=== PATIENT | male | born 1965 | race Caucasian/White ===

== ENCOUNTER 2017-01-01 16:29 | Inpatient (IN) ==
[2017-01-01] MEDS ORDERED: *HR* Heparin 5,000 UNIT/ML VIAL IVP ONE (17:00)
[2017-01-01] MEDS ORDERED: Aspirin 81 MG TAB.CHEW PO ONE (17:00)
[2017-01-01] MEDS ORDERED: *HR* Ticagrelor 90 MG TABLET ONE (17:00)
[2017-01-01] MEDS ORDERED: *HR* Heparin 5,000 UNIT/ML VIAL ONE (17:00)
[2017-01-01] MEDS ORDERED: *HR* Ticagrelor 90 MG TABLET PO ONE (17:00)
[2017-01-01] MEDS ORDERED: 0.9 % Sodium Chloride 1,000 ML ONE ×3 (17:01→17:47)
[2017-01-01] MEDS ORDERED: Aspirin 81 MG TAB.CHEW ONE (17:01)
[2017-01-01 17:15] LABS: Basophils # 0.1 K/mcL (0.0-0.2); Basophils % 0.6 %; Eosinophils # 0.1 K/mcL (0.0-0.6); Eosinophils % 0.7 %; Hematocrit 54.6 % (37.5-50.1); Immature Granulocytes % 0.4 % (0-4); Lymphocytes % 13.3 %; Mean Corpuscular HGB Conc 34.8 g/dL (31.6-35.5); Mean Corpuscular Hemoglobin 31.6 pg (28.0-33.3); Mean Corpuscular Volume 90.7 fL (83.0-100.0); Mean Platelet Volume 8.8 fL (9.4-12.4); Monocytes % 6.3 %; Neutrophils # 11.9 K/mcL (1.6-8.9); Platelet Count 351 K/mcL (140-400); Red Blood Count 6.02 M/mcL (4.19-5.50); Red Cell Distribution Width 13.6 % (11.5-14.5); Segmented Neutrophils % 78.7 %
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
[2017-01-01 17:20] LABS: INR 1.1; Prothrombin Time 11.4 Seconds (9.4-12.1)
[2017-01-01 17:22] LABS: Activated Partial Thrombo Time 37.1 Seconds (26.0-36.0)
[2017-01-01] MEDS ORDERED: *HR* Morphine 2 MG/ML SYRINGE IVP PRN (17:24)
[2017-01-01] MEDS ORDERED: Ondansetron 4 MG/2 ML VIAL IVP PRN (17:24)
[2017-01-01 17:27] LABS: BUN/Creatinine Ratio 8 (6-26); Blood Urea Nitrogen 7 mg/dL (8-26); Calcium 9.6 mg/dL (8.6-10.8); Carbon Dioxide 23 mEq/L (19-29); Chloride 98 mEq/L (98-109); Glucose 122 mg/dL (70-99); Magnesium 1.6 mg/dL (1.6-2.6); Osmolality,Calculated 279 (280-300); Sodium 135 mEq/L (136-145); eGFR For African Americans > 60 (> 60); eGFR For Non-African Americans > 60 (> 60)
[2017-01-01] MEDS ORDERED: Nitroglycerin 1,000 MCG/10 ML VIAL IV ONE (17:27)
[2017-01-01] MEDS ORDERED: *HR* Heparin 10,000 UNIT/10 ML VIAL ONE (17:27)
[2017-01-01] MEDS ORDERED: *HR* FentaNYL (PF) 250 MCG/5 ML VIAL ONE (17:27)
[2017-01-01] MEDS ORDERED: Verapamil 5 MG/2 ML VIAL ONE (17:27)
[2017-01-01] MEDS ORDERED: Heparin 1,000 UNITS/500 mL NS 500 ML ONE (17:27)
[2017-01-01] MEDS ORDERED: *HR* Midazolam HCl 5 MG/5 ML VIAL IVP ONE (17:27)
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
[2017-01-01] MEDS ORDERED: Ondansetron 4 MG/2 ML VIAL IV ONE (17:38)
[2017-01-01] MEDS ORDERED: Ondansetron 4 MG/2 ML VIAL ONE (17:42)
--- NOTE | 2017-01-01 17:49 | Pre-Sedation Evaluation ---
Pre-sedation evaluation - Pre-sedation checklist Date of procedure: 01/01/17 Procedure: [facility] Recent Vitals: Last Vital Signs Temp 98.5 F 01/01/17 17:04 Pulse 68 01/01/17 17:12 Resp 14 01/01/17 17:12 BP 162/94 01/01/17 17:12 Pulse Ox 98 01/01/17 17:12 H&P (including ROS) documented in medical record: Yes Previous reaction to sedatives/anesthetics: No Dietary Status: unknown Airway Assessment: Patient can open mouth completely, TMJ function normal ASA Classification *see protocol: CLASS II-Mild systemic disease, E-EMERGENCY- Add to any of the above to indicate emergent Plan of Care: Pt appropriate candidate for procedure/moderate/conscious sedation , Risks/benefits of procedure/sedation discussed w/ patient/family
[2017-01-01] MEDS ORDERED: GI Cocktail 40 ML EACH PO ONE (18:51)
[2017-01-01] MEDS ORDERED: *HR* HYDROcodone/Acet 5/325 mg TABLET PO PRN (19:12)
[2017-01-01] MEDS ORDERED: Acetaminophen 325 MG TABLET PO PRN (19:12)
[2017-01-01] MEDS ORDERED: Nitroglycerin 0.4 MG TAB.SUBL SL PRN (19:12)
[2017-01-01] MEDS ORDERED: *HR* OxyCODONE/APAP 5/325 TABLET PO PRN (19:12)
[2017-01-02 04:32] LABS: Basophils # 0.1 K/mcL (0.0-0.2); Basophils % 0.5 %; Eosinophils # 0.1 K/mcL (0.0-0.6); Eosinophils % 0.7 %; Hematocrit 50.2 % (37.5-50.1); Hemoglobin 17.5 g/dL (12.9-16.9); Immature Granulocytes % 0.5 % (0-4); Lymphocytes # 2.2 K/mcL (0.6-4.6); Lymphocytes % 13.1 %; Mean Corpuscular HGB Conc 34.9 g/dL (31.6-35.5); Mean Corpuscular Hemoglobin 31.4 pg (28.0-33.3); Mean Platelet Volume 9.1 fL (9.4-12.4); Monocytes # 1.5 K/mcL (0.0-1.3); Monocytes % 8.8 %; Neutrophils # 12.9 K/mcL (1.6-8.9); Platelet Count 300 K/mcL (140-400); Red Blood Count 5.58 M/mcL (4.19-5.50); Red Cell Distribution Width 13.5 % (11.5-14.5); Segmented Neutrophils % 76.4 %
[2017-01-02 04:40] LABS: Hemoglobin A1C 5.4 %
[2017-01-02 04:45] LABS: BUN/Creatinine Ratio 9 (6-26); Blood Urea Nitrogen 7 mg/dL (8-26); Calcium 8.7 mg/dL (8.6-10.8); Carbon Dioxide 25 mEq/L (19-29); Chloride 105 mEq/L (98-109); Glucose 121 mg/dL (70-99); Osmolality,Calculated 285 (280-300); Potassium 3.9 mEq/L (3.5-4.5); Sodium 138 mEq/L (136-145); eGFR For African Americans > 60 (> 60); eGFR For Non-African Americans > 60 (> 60)
[2017-01-02] MEDS ORDERED: *HR* Ticagrelor 90 MG TABLET PO SCH (06:00)
[2017-01-02] MEDS ORDERED: 0.9 % Sodium Chloride 2,000 ML ONE (06:35)
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
--- NOTE | 2017-01-02 08:19 | Cardiology Progress Note ---
Date of Encounter: 01/02/17 Time of Encounter: 08:16 Assessment and Plan (1) Alcohol abuse, daily use Current Visit: Yes Status: Acute No current signs of withdrawal. We will order as needed ativan to control any withdrawal symptoms. (2) Nicotine dependence Current Visit: Yes Status: Acute counseling provided The assessment and plan as outlined above was discussed with the patient and/or family members who expressed understanding and agreement. All questions were answered. Qualifiers: Nicotine product type: cigarettes Substance use status: uncomplicated Qualified Code(s): F17.210 - Nicotine dependence, cigarettes, uncomplicated (3) HTN (hypertension) Current Visit: Yes Status: Acute continue home meds, titrate during hospitalization. He will remain on lisinopril. Metoprolol has been held due to sinus bradycardia. Qualifiers: Hypertension type: essential hypertension Qualified Code(s): I10 - Essential (primary) hypertension (4) STEMI (ST elevation myocardial infarction) Current Visit: Yes Status: Acute Left heart catheter due to STEMI. EF of 55%. Received [id number] proximal RCA drug-eluting stent from the right radial approach. His symptoms have since resolved. He is currently on Brilinta and aspirin. His metoprolol was held due to his sinus bradycardia. He will likely be able to move to a step down unit from the ICU today. Qualifiers: Involved coronary artery: other inferior wall coronary artery Qualified Code(s): I21.19 - ST elevation (STEMI) myocardial infarction involving other coronary artery of inferior wall (5) History of DVT of lower extremity Current Visit: No Status: Acute Calling PCP to find reason for being on eliquis for past 6 years Will restart eliquis if needed Discussion w patient/family: The assessment and plan as outlined above was discussed with the patient and/or family members who expressed understanding and agreement. All questions were answered. Thank you for involving us in the care of your patient. Please call with any questions. Subjective Principal diagnosis: STEMI Interval history: The patient had an uneventful night. He reports he has no chest discomfort whatsoever. All of the symptoms that he presented to the ER with have resolved. He denies any significant pain at the wrist catheter insertion site. He has been able to eat and drink without difficulty. His heart rate has remained between the mid 50s and 70 throughout the night. He denies any symptoms associated with this. He does report that he is a heavy drinker but has been slowly coming back. He drinks between a 6 and a 12 pack every evening. His last alcohol intake was approximately 36 hours ago. He denies any confusion, agitation, tremors. He has not gone into delirium tremens in the past. Objective Vital Signs, Last 4 Hours Temp Pulse Resp BP Pulse Ox 01/02/17 08:00 58 18 157/99 94 01/02/17 07:45 98.3 F 58 01/02/17 07:00 60 14 137/81 91 01/02/17 06:00 56 18 129/77 95 01/02/17 05:00 68 16 152/96 98 01/02/17 04:29 61 General: Conversant, No Apparent Distress HEENT: Atraumatic, Mucus Membranes Moist Neck: No JVD, Normal carotid pulses Cardiac: Reg Rate and Rhythm, Normal S1 and S2, No Murmur Lungs: Normal Breath Sounds, No Wheeze, Rales, Rhonchi Neuro: Alert and responsive, No focal deficits noted Abdomen: Soft Skin: No rashes noted on visualized skin Extremities: No Cyanosis, No Edema, Normal Pulses, Other (Right wrist catheter insertion site is healing well without significant hematoma. Pulses are palpable. Hand is warm and pink with cap refill less than 3 seconds.) Results 01/02/17 04:21 01/02/17 04:21 Lab Results 01/02/17 01/02/17 04:21 04:21 WBC 16.9 H Hgb 17.5 H D Hct 50.2 H Plt Count 300 Sodium 138 Potassium 3.9 Chloride 105 Carbon Dioxide 25 BUN 7 L Creatinine 0.76 Glucose 121 H Calcium 8.7 Consult Discharge Plan - Plan Referrals: NO,PCP [Primary Care Provider] -
[2017-01-02] MEDS ORDERED: Metoprolol XL (24 HR) Succ 25 MG TAB.ER.24H PO SCH (09:00)
[2017-01-02] MEDS ORDERED: Aspirin 81 MG TAB.CHEW PO SCH (09:00)
[2017-01-02] MEDS ORDERED: Lisinopril 20 MG TABLET PO SCH (09:00)
--- NOTE | 2017-01-02 09:08 | Invasive Diagnostic Lab Proc ---
Name: Jovany Scott Date of Study: 01/01/2017 Date: 1965 Ht: 66.1in Medical Record#: [id number] Age: 51 Wt: 171.96lb Gender: Male BSA: 1.88 Order #: [id number] BMI: 27.64 Physicians Procedure Physician: Juan Carlos Cárdenas MD, [facility] Referring MD: None Referring MD: Staff Name Position Time In Liam Casas RN Monitor 05:50 PM Anita Vivas RT (R) Scrub 05:50 PM Royce Scott RN Assembly Riveter 05:50 PM Indications Indication STEMI Procedures Performed Procedure L HRT ARTERY/VENTRICLE ANGIO PRQ CARD REVASC MT 1 VSL Pre-Procedure Checklist Informed consent is complete signed and on chart. H\\T\\P is on chart. ID band is on and ID verified with patient. Pt not NPO for procedure and MD aware. The procedure was described for the patient and questions were answered. Blood Pressure: 162/94 ECG is on chart. Rhythm: NSR Plan of Care Patient will tolerate the procedure without complications. Adequate level of comfort will be maintained. Hemodynamics will remain stable Patient will recover from procedure without complications. Respiratory function will be maintained. Cardiac rhythm will remain stable. Patient temperature will be maintained. Patient and/or family have verbalized understanding of the procedure. Patient Education Chief Complaint/Reason for Test: Cardiac Cath Developmental Category: Adult (18-64 years) Developmentally Appropriate for Age: Yes Learning Barriers: None Education Needs: Procedure Education Method: Verbal Information Taught: Cardiac Cath Educational Evaluation: Able to repeat information Intravenous Access Time IV Size Location DC'd Fluid/Drip Rate Units RN 18g 1 1/" Patent On Arrival Lt Antecubital 0.9NaCl 25 ml/hr Liam Casas RN 18g 1 1/4" Patent On Arrival Rt Antecubital Allergies No Known Allergies Vital Signs Time BP (mmHg) HR (bpm) O2 Sat. RR (bpm) LOC 05:22 PM 162 / 94 68 98 % 14 5 = Fully awake and oriented or at pre-proc level 05:53 PM / % 5 = Fully awake and oriented or at pre-proc level 05:53 PM / % 5 = Fully awake and oriented or at pre-proc level 05:52 PM 160 / 97 62 100 % 21 05:55 PM 162 / 103 60 100 % 20 06:00 PM 129 / 82 60 98 % 30 06:06 PM 171 / 101 55 98 % 32 06:11 PM 171 / 110 56 98 % 25 06:16 PM 159 / 99 62 99 % 22 06:21 PM 153 / 88 51 99 % 24 Procedural Medications Time Medication Dose Units Method Given By 05:51 PM Oxygen 2 L/min nasal cannula Royce Scott RN 05:51 PM Versed 2 mg Intravenous Royce Scott RN 05:51 PM Fentanyl 50 mcg Intravenous Royce Scott RN 05:54 PM Lidocaine 2% 1 ml Subcutaneous Juan Carlos Cárdenas MD, [facility] 05:55 PM Heparin 0 units Nitroglycerin 200 mcg Verapamil 2.5 mg Intraarterial Juan Carlos Cárdenas MD, FAC 06:16 PM Nitroglycerin 200 mcg Intracoronary Juan Carlos Cárdenas MD 06:30 PM Heparin 2000 units Intravenous Royce Scott RN ASA Classification: CLASS II- Mild systemic disease (i.e. well-controlled diabetes, hypertension, asthma, cigarette smoking) Emergent Procedure: ASA score is assumed Giselle Score Preprocedure Postprocedure Activity 2- Moves 4 extremities sustained head lift Activity 2- Moves 4 extremities sustained head lift Circulation 2- SBP +/= 20 points of pre-anesthetic level Circulation 2- SBP +/= 20 points of pre-anesthetic level Consciousness 2- Awake and alert oriented x 3 Consciousness 2- Awake and alert oriented x 3 O2 Saturation 2- Able to maintain O2 satruation of 92% on room air O2 Saturation 2- Able to maintain O2 satruation of 92% on room air Respiratory 2- Able to deep breathe and cough well Respiratory 2- Able to deep breathe and cough well Total Score 10 Total Score 10 Contrast Agent: Isovue Diagnostic Contrast: 84 ml Total Contrast: 84 ml Fluoro Dose: 285 mGy Activated Clotting Time Time Seconds to Clot 06:25 PM 199 Procedure Log Time Note Enter By 05:18 PM CathStat 05:50 PM Case Start 05:50 PM Vitals capture started with the following parameters, Patient=Adult, Interval=5 min, Initial Pjxyepqx=806 mmHg, Deflation Rate=5 mmHg, Cuff placed on Left Arm 05:50 PM Pt arrived to environmental laboratory technician 2 at 17:45 csmith 05:50 PM Liam Casas RN Position: Monitor Time in: 17:50 csmith 05:50 PM Anita Vivas RT (R) Position: Scrub Time in: 17:50 csmith 05:50 PM Royce Scott RN Position: Assembly Riveter [facility]: 17:50 [facility] Patient charges- Angio tray pack, Navilyst 3mm J, Pulse Oximetry and ACIST tubing and transducer csmith 05:50 PM Recorded ECG: HR=59 Condition=Condition 1 05:51 PM Hair removed from procedure site in emergency department using clippers. Right wrist and right groin prepped with Chloraprep by Anita then patient was draped. Skin intact. csmith 05:51 PM Recorded ECG: HR=65 Condition=Condition 1 05:51 PM Physician arrived 17:51 csmith 05:51 PM ASA Class CLASS II- Mild systemic disease (i.e. well-controlled diabetes, hypertension, asthma, cigarette smoking) csmith 05:51 PM Meet and greet completed csmith 05:51 PM Procedure start 17:51 csmith 05:51 PM Time: 17:51 Oxygen on at 2 L/min per nasal cannula by Royce Scott RN [facility] 05:51 PM Time: 17:51 Versed 2 mg Intravenous Given by Royce Scott RN [facility] 05:51 PM Time: 17:51 Fentanyl 50 mcg Intravenous Given by [facility] RN [facility] 05:52 PM HR=62 bpm, RMCJ=326/97 mmhg, AjE6=893.0 %, Resp=21 B/min, Comment=sr 05:53 PM Time: 17:53 Patient comfortable and pain free: Yes csmith 05:53 PM Time: 17:53LOC: 5 = Fully awake and oriented or at pre-proc level csmith 05:54 PM Time out performed according to hospital policy [facility] :54 PM Time: 17:54 1 ml Lidocaine 2% to right radial Subcutaneous Given by Juan Carlos Cárdenas MD, [facility] csmith 05:55 PM Access obtained by percutaneous puncture. 5/6Fr 11cm Terumo [place] sheath placed in right Radial artery. [id number] csmith 05:55 PM Time: 17:55 Patient given 0 units Heparin, 200 mcg Nitroglycerin, and 2.5 mg Verapamil Intraarterial by Juan Carlos [facility]denas MD, [facility] 05[facility] PM HR=60 bpm, JDSS=008/103 mmhg, BuC1=964.0 %, Resp=20 B/min, Comment=sr 05:56 PM Pressure channel 1 zero failed. 05:57 PM Pressure channel 1 zeroed. 05:57 PM 6Fr FR4 Cordis guide catheter was used to cannulate the PCI vessel successfully. reused? No csmith 05:57 PM Inflation device was opened. csmith 05:57 PM 0.035 260cm Navilyst 3mmJ wire [id number] csmith 05:58 PM wire removed csmith 05:58 PM 0.035 150cm VSI Dg-Torque wire [id number] csmith 05:59 PM Recorded Pressure: Ao, HR=46, Condition=Condition 1 (Aorta) Ao 106/60/79 06:00 PM RCA angiography performed in multiple views. csmith 06:00 PM wire removed csmith 06:00 PM .014 PT Graphix 182cm guide wire across target lesion- successful. reused? No csmith 06:00 PM 2.0 mm x 20 mm Emerge Monorail balloon across target lesion- successful. reused? No csmith 06:00 PM HR=60 bpm, AYQZ=902/82 mmhg, SpO2=98.0 %, Resp=30 B/min, Comment=sr 06:01 PM PCI lesion in Proximal RCA. Pre Stenosis: 99 Pre KHAI Flow: 2: Partial Flow/Perfusion (> 1 but < 3) csmith 06:01 PM Balloon inflated @ 14 marc for 10 seconds csmith 06:01 PM Balloon inflated @ 14 marc for 15 seconds csmith 06:04 PM Recorded Pressure: Ao, HR=62, Condition=Condition 1 (Aorta) Ao 137/87/109 06:04 PM Balloon catheter removed intact. csmith 06:05 PM 3.0mm x 32mm Synergy bioabsorbable stent across target lesion- successful Lot #[id number] csmith 06:05 PM Stent deployed @ 16 marc for 18 seconds csmith 06:06 PM HR=55 bpm, VEZZ=119/101 mmhg, SpO2=98.0 %, Resp=32 B/min, Comment=sb 06:07 PM Stent delivery system removed intact. csmith 06:07 PM 3.5mm x 12mm Synergy bioabsorbable stent across target lesion- successful Lot #[id number] [facility] 06:08 PM Time: 17:53 Patient comfortable and pain free: Yes csmith 06:08 PM Time: 17:53LOC: 5 = Fully awake and oriented or at pre-proc level csmith 06:08 PM Stent deployed @ 16 marc for 20 seconds csmith 06:09 PM Balloon inflated @ 12 marc for 16 seconds csmith 06:10 PM Balloon inflated @ 12 marc for 10 seconds csmith 06:10 PM Balloon inflated @ 12 marc for 11 seconds csmith 06:10 PM Coronary Dominance: right csmith 06:11 PM HR=56 bpm, CQPT=547/110 mmhg, SpO2=98.0 %, Resp=25 B/min, Comment=sb 06:11 PM wire and stent delivery system removed csmith 06:11 PM guide catheter removed csmith 06:13 PM 5Fr FL 3.5 catheter inserted over the wire [id number] csmith 06:14 PM LCA angiography performed in multiple views. csmith 06:14 PM Recorded Pressure: Ao, HR=57, Condition=Condition 1 (Aorta) Ao 131/76/100 06:15 PM Lesion found in Proximal LAD. Pre Stenosis: 40 Pre KHAI Flow: 3: Complete and Brisk Flow/Perfusion csmith 06:15 PM Lesion found in Mid Circumflex. Pre Stenosis: 40 Pre KHAI Flow: 3: Complete and Brisk Flow/Perfusion csmith 06:16 PM catheter removed csmith 06:16 PM HR=62 bpm, UTND=430/99 mmhg, SpO2=99.0 %, Resp=22 B/min, Comment=sr 06:16 PM 5Fr Pigtail catheter inserted over the wire [facility] csmith 06:16 PM Catheter selectively placed in left ventricle csmith 06:17 PM Pressure channel 1 zero failed. 06:17 PM Pressure channel 1 zeroed. 06:17 PM Recorded Pressure: LV, HR=55, Condition=Condition 1 (Left Ventricle) LV 170/9/26 06:17 PM Bolus angiogram of left Ventricle complete: 10 ml/sec for a total of 20 mls csmith 06:18 PM Recorded Pressure: LV, Ao, HR=84, Condition=Condition 1 (Left Ventricle) LV 132/2/34, (Aorta) Ao 145/90/116 06:18 PM Catheter removed csmith 06:18 PM Wire removed csmith 06:20 PM Time: 18:16 Nitroglycerin 200 mcg Intracoronary Given by Juan Carlos Cárdenas MD csmith 06:20 PM Procedure completed at 18:20 csmith 06:21 PM HR=51 bpm, YNLL=222/88 mmhg, SpO2=99.0 %, Resp=24 B/min, Comment=sb 06:21 PM Sign out completed: Radiation Dose 285 mGy Fluoro Time: 5.7 Isovue 370 - 200ml contrast 84 ml given by Juan Carlos Cárdenas MD, [facility]. Complications: NoneCardiac Rehab Consult needed: YesConfirmed administered medications: Yes csmith 06:21 PM Isovue 370 - 200ml,1 Bottle(s) used. csmith 06:21 PM Arterial sheath pulled, Vasc Band closure device used and was Successful S/N. csmith 06:21 PM 8 ml air in Vasc Band. csmith 06:21 PM Post ECG Sinus Bradycardia csmith 06:21 PM Post Blood Pressure 153/88 csmith 06:21 PM 18:21 Post Pulses Right radial 1+ csmith 06:21 PM Information taught PCI and Vasc Band csmith 06:21 PM Education needs Responsibilities of Patient in Care csmith 06:21 PM Learning barriers :None csmith 06:21 PM Education Methods Verbal csmith 06:21 PM Education evaluation Able to repeat information csmith 06:21 PM Site status No bleeding/hematoma - Rt Wrist as reported by Anita Vivas RT (R) at 18:21 csmith 06:25 PM At 18:25 the ACT was 199 seconds. csmith 06:25 PM 2ml added to vasc band for total of 10ml air csmith 06:30 PM Time: 18:30 Heparin 2000 units Intravenous Given by Royce Scott RN Velez pump csmith 06:32 PM Patient out of room: 18:32 [email or web address] Complications Complication None Hemodynamics Pressures Site Systolic/A Wave Diastolic/V Wave Mean AO 106 60 79 AO 137 87 109 AO 131 76 100 LV 170 9 26 LV 132 2 34 AO 145 90 116 Post Procedure Information Blood Pressure: 153/88 mmHg Rhythm: Sinus Bradycardia Post procedural instructions were given Closure Device Time Device Success/Fail Mechanical Compression Successful Site Checks Time Location Status Staff Sheath In? Note 06:21 PM Rt Wrist No bleeding/hematoma Anita Vivas RT (R) Pulses Time Site Pre-Procedure Post-Procedure Note 01/01/2017 5:54:00 PM Rt Radial 2+ 6:21:00 PM Right radial 1+ Updated by Bailee Mckeon, RT(R) on 01/02/2017 9:03:15 AM electronically signed on 01/02/2017 9:03:41 AM with status of Final
[2017-01-02] MEDS ORDERED: Thiamine (B-1) 100 MG TABLET PO SCH (09:45)
[2017-01-02] MEDS ORDERED: Folic Acid 1 MG TABLET PO SCH (09:45)
[2017-01-02] MEDS ORDERED: *HR* LORazepam 2 MG/ML VIAL IVP PRN ×2 (09:45→14:17)
[2017-01-02] MEDS ORDERED: Enoxaparin Weight Dosing SQ SCH (12:30)
[2017-01-02] MEDS ORDERED: *HR* HYDROcodone/Acet 5/325 mg TABLET PO PRN (14:17)
[2017-01-02] MEDS ORDERED: *HR* OxyCODONE/APAP 5/325 TABLET PO PRN (14:17)
[2017-01-02] MEDS ORDERED: Ondansetron 4 MG/2 ML VIAL IVP PRN (14:17)
[2017-01-02] MEDS ORDERED: Acetaminophen 325 MG TABLET PO PRN (14:17)
[2017-01-02] MEDS ORDERED: Nitroglycerin 0.4 MG TAB.SUBL SL PRN (14:17)
--- NOTE | 2017-01-02 14:52 | ECHO - Doppler Report ---
Echocardiogram Name: Jovany Scott Date of Study: 01/02/2017 Date: 1965 Ht: 66.0 in Medical Record#: [id number] Age: 51 Wt: 171.0 lb Gender: Male BSA: 1.87 Order #: [id number] Location: [facility] Room #: [facility] Reading Physician: Aria Huggins DO Low Voltage Technician: Roxanne Grajeda RDCS, T Ordering Physician: Juan Carlos Cárdenas MD, [facility] Primary Physician: None Indications: Acute Coronary Syndrome Impressions: LVEF 55%. Normal left ventricular size and systolic function. There is evidence of mild diastolic dysfunction of the left ventricle. Normal right ventricular size and function. No significant valvular dysfunction. No pulmonary hypertension. Left Ventricular Wall Motion: Rest Echo Findings All wall segments showed normal motion. Findings: Study Quality * Technically adequate exam. ECG Findings * Normal sinus rhythm. Left Ventricle * Normal LV chamber size, wall thickness and function. * Mild left ventricular diastolic dysfunction. * LVEF 55%. Left Atrium * Normal left atrial size. Aortic Valve * No aortic regurgitation. * Aortic valve not well visualized. * No aortic stenosis. Mitral Valve * No mitral regurgitation. * Normal mitral valve structure. * No mitral stenosis. Tricuspid Valve * No tricuspid regurgitation. * Estimated RA pressure is 3 mmHg. * Normal tricuspid valve structure. Pulmonic Valve * Pulmonic valve is not well visualized. * No pulmonic stenosis. * No pulmonic regurgitation. Pulmonary Artery * Pulmonary artery not well visualized. Right Ventricle * Normal right ventricular structure and function. Right Atrium * Normal right atrial size. Pericardium * There is no pericardial effusion present. Aorta * Normally sized aortic root. Interatrial Septum * No evidence of PFO by color Doppler. IVC * Normal IVC dimensions and inspiratory collapse. History Hypertension History of CAD/PTCA Measurements: BP: 138/ 101 2D Normal Values RVIDd: 2.80 cm <2.7 cm IVSd: .80 cm 0.6 - 1.0 cm LVIDd: 4.90 cm 3.7 - 5.6 cm LVPWd: .60 cm 0.6 - 1.1 cm LVIDs: 3.80 cm 1.5 - 3.6 cm AO: 2.50 cm < 4.0 cm LA: 2.80 cm 2.0 - 4.0cm %FS: 22.40 cm >25 % LA volume: 39 Mitral Valve Peak E:.61 m/sec Peak A:.65 m/sec E/A Ratio:0.9 Peak E' Lat Michele:8.97 cm/s Peak E' Med Michele:5.07 cm/s E/E' Lat Ratio:6.8 E/E' Med Ratio:12.1 Updated by Aria Huggins on 01/02/2017 2:45:14 PM electronically signed on 01/02/2017 2:46:24 PM with status of Final Wall Motion Junior: 1=Normal, 2=Hypokinesis, 3=Akinesis, 4=Dyskinesis, 5=Aneurysmal, 6=Hyperkinetic, X=Not Visualized (Blank)=Missing
[2017-01-02] MEDS: *HR* Enoxaparin 40 MG/0.4 ML SYRINGE SQ SCH (14:56)
[2017-01-02] MEDS: *HR* Ticagrelor 90 MG TABLET PO SCH (20:32)
[2017-01-03 05:14] LABS: Basophils # 0.1 K/mcL (0.0-0.2); Basophils % 0.5 %; Eosinophils # 0.2 K/mcL (0.0-0.6); Eosinophils % 1.2 %; Immature Granulocytes % 0.3 % (0-4); Lymphocytes # 3.3 K/mcL (0.6-4.6); Mean Corpuscular HGB Conc 35.4 g/dL (31.6-35.5); Mean Corpuscular Hemoglobin 32.3 pg (28.0-33.3); Mean Corpuscular Volume 91.3 fL (83.0-100.0); Mean Platelet Volume 9.5 fL (9.4-12.4); Monocytes # 1.2 K/mcL (0.0-1.3); Monocytes % 8.7 %; Neutrophils # 8.9 K/mcL (1.6-8.9); Platelet Count 247 K/mcL (140-400); Red Blood Count 5.26 M/mcL (4.19-5.50); Red Cell Distribution Width 13.9 % (11.5-14.5); Segmented Neutrophils % 65.3 %
[2017-01-03 05:29] LABS: BUN/Creatinine Ratio 8 (6-26); Blood Urea Nitrogen 6 mg/dL (8-26); Calcium 8.6 mg/dL (8.6-10.8); Carbon Dioxide 25 mEq/L (19-29); Chloride 103 mEq/L (98-109); Glucose 102 mg/dL (70-99); Osmolality,Calculated 280 (280-300); Potassium 3.6 mEq/L (3.5-4.5); Sodium 136 mEq/L (136-145); eGFR For African Americans > 60 (> 60); eGFR For Non-African Americans > 60 (> 60)
--- NOTE | 2017-01-03 06:26 | Electrocardiograph Report ---
[address] [place], [place] [address] Test Date: 2017-01-01 Pat Name: Jovany Scott Department: 105 Room: 2N10 Gender: M Hub Lead: LUCINDA : 1965 Requested By: Juan Carlos Cárdenas Order Number: [id number] Reading MD: Juan Carlos Cárdenas MD Measurements Intervals [place] Rate: 56 P: 5 UT: 138 QRS: 13 QRSD: 82 T: 28 QT: 442 QTc: 434 Interpretive Statements [address] BR[address] ELEVATION, CONSIDER INFERIOR INJURY ACUTE [place] Electronically Signed On 01-03-2017 6:25:09 EDT by Juan Carlos Cárdenas MD
--- NOTE | 2017-01-03 06:28 | Electrocardiograph Report ---
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
--- NOTE | 2017-01-03 06:29 | Electrocardiograph Report ---
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
--- NOTE | 2017-01-03 06:33 | Electrocardiograph Report ---
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
[2017-01-03] MEDS: *HR* Ticagrelor 90 MG TABLET PO SCH ×2 (07:58→18:57)
[2017-01-03] MEDS ORDERED: Thiamine (B-1) 100 MG TABLET PO SCH (09:00)
[2017-01-03] MEDS ORDERED: Folic Acid 1 MG TABLET PO SCH (09:00)
[2017-01-03] MEDS ORDERED: Metoprolol XL (24 HR) Succ 25 MG TAB.ER.24H PO SCH ×2 (09:00→14:27)
[2017-01-03] MEDS ORDERED: Lisinopril 20 MG TABLET PO SCH (09:00)
[2017-01-03] MEDS ORDERED: Aspirin 81 MG TAB.CHEW PO SCH (09:00)
[2017-01-03 11:07] VITALS: BP 115/80
[2017-01-03] MEDS ORDERED: *HR* Enoxaparin 40 MG/0.4 ML SYRINGE SQ SCH (13:00)
[2017-01-03] MEDS: *HR* Enoxaparin 40 MG/0.4 ML SYRINGE SQ SCH (14:12)
--- NOTE | 2017-01-03 14:41 | Discharge Summary ---
Date of Encounter: 01/03/17 Time of Encounter: 14:41 - Discharge Diagnosis (1) STEMI (ST elevation myocardial infarction) Priority: Primary Status: Acute Comments: Patient with a history of hypertension and tobacco use who presented to the ED with complaint of left shoulder pain and back pain that radiated across his chest and neck with associated diaphoresis and nausea. EKG revealed ST elevations in leads 2, 3, aVF, and ST depression in aVR. Troponin was 0.23. CXR revealed no acute process. Patient underwent emergent cath at [facility] for inferior STEMI. PTCA/SHAE placement in the proximal RCA. LV had normal contractility of EF 55%. Continue Brilinta, aspirin, Crestor, and Metoprolol XL Follow up with Cardiology as outpatient. Qualifiers: Involved coronary artery: other inferior wall coronary artery Qualified Code(s): I21.19 - ST elevation (STEMI) myocardial infarction involving other coronary artery of inferior wall (2) HTN (hypertension) Priority: Secondary Status: Chronic Comments: Bp 115/80, pulse 60. Continue Lisinopril home medication. Qualifiers: Hypertension type: essential hypertension Qualified Code(s): I10 - Essential (primary) hypertension (3) Nicotine dependence Priority: Secondary Status: Chronic Comments: Counseled patient on the importance of smoking cessation. Patient sent home with script for nicotine patches. Advised patient to stick to a quit date and plan. Qualifiers: Nicotine product type: cigarettes Substance use status: uncomplicated Qualified Code(s): F17.210 - Nicotine dependence, cigarettes, uncomplicated (4) Alcohol abuse, daily use Priority: Secondary Status: Chronic Comments: Counseled patient on the importance of avoiding excessive alcohol intake. Patient has a history of drinking 6-12 beers a day. Patient did not undergo withdrawal during hospitalization. (5) History of DVT of lower extremity Priority: Secondary Status: Acute Comments: Start brilinta, discontinue Eliquis. - Discharge Medications Prescriptions: Nitroglycerin 0.4 mg SL Q5MIN PRN #15 tab.subl PRN Reason: Chest Pain Aspirin 81 mg PO DAILY #30 tab.chew Folic Acid 1 mg PO DAILY #30 tablet Metoprolol XL (24 HR) Succ [Toprol Xl] 12.5 mg PO DAILY #30 tab.er.24h Nicotine Patch [Nicoderm] 21 mg TD DAILY #14 patch.td24 Rosuvastatin [Crestor] 40 mg PO HS #30 tablet Thiamine (B-1) [Vitamin B-1] 100 mg PO DAILY #30 tablet Ticagrelor [Brilinta] 90 mg PO BID #60 tablet Home Medications: Albuterol Sulfate [Albuterol Inhaler] 2 puff IH Q4-6H PRN 01/01/17 [History] Escitalopram [Lexapro] 20 mg PO DAILY 01/01/17 [History] Lisinopril [Zestril] 40 mg PO DAILY 01/01/17 [History] Aspirin 81 mg PO DAILY #30 tab.chew 01/03/17 [Rx] Folic Acid 1 mg PO DAILY #30 tablet 01/03/17 [Rx] Metoprolol XL (24 HR) Succ [Toprol Xl] 12.5 mg PO DAILY #30 tab.er.24h 01/03/17 [Rx] Nicotine Patch [Nicoderm] 21 mg TD DAILY #14 patch.td24 01/03/17 [Rx] Nitroglycerin 0.4 mg SL Q5MIN PRN #15 tab.subl 01/03/17 [Rx] Rosuvastatin [Crestor] 40 mg PO HS #30 tablet 01/03/17 [Rx] Thiamine (B-1) [Vitamin B-1] 100 mg PO DAILY #30 tablet 01/03/17 [Rx] Ticagrelor [Brilinta] 90 mg PO BID #60 tablet 01/03/17 [Rx] Allergies/Adverse Reactions: Allergies No Known Allergies Allergy (Unverified 12/23/15 14:08) Procedures/tests Complete & Pending: Procedures Performed prior 72 hours Category Date Time Status ECG 12 lead ECG [ECG] Routine Y 01/01/17 17:24 Completed ECG 12 lead ECG [ECG] Routine Y 01/01/17 18:23 Completed ECG 12 lead ECG [ECG] Routine Y 01/02/17 07:00 Ordered ECG 12 lead ECG [ECG] Stat Y 01/01/17 17:24 Completed EV echocardiogram Routine Y 01/01/17 17:24 Completed Date of admission: 01/01/17 17:13 Primary care physician: Karla Callahan MD Consults: 01/01/17 17:24 Consult to Cardiac Rehabilitation-Phase1 [CONS] Routine Comment: Reason for Consult: AMI Call Completed: Yes Consult to Nurse Navigator [CONS] Routine Comment: Discharging clinician: Juan Carlos Cárdenas (Dale Marie) Anticipated date of discharge: 01/03/17 - Patient Status Disposition: Home, Self-Care Condition: Good Functional capacity at discharge: independent ambulation Overall status at discharge: patient is progressing back to baseline - Discharge Instructions Follow Up With: Karla Callahan MD [Primary Care Provider] - 01/10/17 2:45 pm NO,PCP [Non-Partnered Physician] - Juan Carlos Cárdenas MD [Partnered Physician] - (STEMI. f/u within 5-7 days) Forms: ED Satisfaction Letter Additional Instructions: You have been sent home with scripts for Brilinta, aspirin, metoprolol xl, nitroglycerin, and Crestor. It is very important that you take these medications as directed. 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 You have also been counseled on the importance of decreasing your alcohol intake. Follow up with Dr. Cárdenas, Cardiology regarding this hospital visit within 5-7 days of discharge. Follow up with your primary care physician within 7 days regarding this hospital stay. RISK FACTORS: STOP SMOKING: If you smoke, STOP. Smoking or tobacco use significantly increases your risk of heart disease because nicotine causes the arteries to narrow or constrict. It also causes fats to stick to the artery. Your chances of having a heart attack are greatly increased if you continue to smoke. For more information, call the education line for smoking cessation 9-736-TNAOGBF EAT A LOW FAT/CHOLESTEROL/SODIUM DIET: This diet may help reduce your chances of having a heart attack. LIFTING: With affected extremity: Avoid bending, pushing off and lifting more than 2 pounds for 24 hours The following 48 hours, avoid lifting anything more than 5 pounds Avoid strenuous activity or repetitive motions ACTIVITY: You may walk or climb stairs as tolerated You can resume sexual activity as tolerated In general, you are encouraged to engage in a minimum of 30 minutes or more of moderate intensity physical activity, such as brisk walking, daily or at least 3 -4 times weekly BATHING Do not submerge the site into water (bath tub, hot tub, swimming pool, dishes) for 1 week. This can be a source for infection into the blood stream. You may shower after 24 hours SITE CARE: After 24 hours, you may remove the dressing and leave the site open to air. Keep the site clean and dry. Clean gently and pat dry. You can expect bruising and tenderness that gradually resolve within a week or two. Return to work as instructed per your physician Resume driving as instructed per physician Keep all scheduled follow up appointments Resume medications as instructed IMPORTANT: If prescribed a Platelet Aggregation Inhibitor such as, Plavix, Brilinta or Effient: Duration of therapy is minimum one year These medications are often used in combination with Aspirin in prevention of future heart attacks Never discontinue unless consult with your Dairy Equipment Repairer STROKE (CVA) Risk factors for a stroke are: Age, cigarette smoking, diabetes, excessive alcohol consumption, family history, high blood pressure, overweight, physical inactivity, prior stroke, heart attack, diagnosis of carotid artery stenosis or other artery disease. Warning signs: Sudden numbness or weakness of the face, arm or leg; especially on one side of the body, sudden confusion, trouble speaking or understanding, sudden trouble seeing in one or both eyes, sudden trouble walking, dizziness, loss of balance or coordination, sudden severe headache with no cause. Call 911 or go to the Emergency Room. CONGESTIVE HEART FAILURE: If you have been diagnosed with Congestive Heart Failure (CHF) and your symptoms return, make an appointment with your physician Weigh yourself daily. Notify your physician if you have a weight gain of two or more pounds in one day or five or more pounds in one week. If you experience any difficulty breathing, please call 911 BLEEDING: Although the risk of bleeding is minimal, it can happen. If you have any bleeding from the site, apply firm pressure above the puncture site for 10-15 minutes. If the bleeding does not stop, continue manual pressure and call 911 Contact [facility] ( ) if: You develop a fever greater than 101 degrees Fahrenheit Your site becomes reddened or has any drainage You have an increase in pain or burning at the site or if a large knot forms at the site. If you experience chest pain, shortness of breath, dizziness, or extreme tiredness, stop the activity and rest. Please notify [facility] office if you experience any of these symptoms and they are not relieved by rest please call 911! - Diet and Activity Activity: return to work once cleared by your PCP/specialist, other (Avoid strenuous and exertional activities until seen by Cardiology at follow up) Diet: low fat, low cholesterol, low salt diet - Hospital Course Hospital course: Mr. Scott is a 51 year old male with history of hypertension, tobacco use, alcohol abuse, and history of dvt who presented to the ED with complaint of Left shoulder pain and back pain that radiated across his chest and neck with associated diaphoresis and nausea. EKG revealed ST elevations in leads 2, 3, and aVF, with ST depression in aVR. Troponin was 0.23. CXR revealed no acute process. Patient was started on Brilinta and heparin prior to knowledge patient was on Eliquis for history of dvt. Patient was prepped for emergent cath at [facility] for inferior STEMI. Informed consent for procedure completed. Patient was aware and in agreement. Patient had severe one vessel coronary artery disease with successful PTCA/SHAE placement in the proximal RCA. The LV was normal and had contractility EF 55%. Overnight the patient denies chest discomfort, was tolerating diet without trouble, and patient denied symptoms suggestive of alcohol withdrawal. Patient did develope some sinus bradycardia with rates into the 50s. Metoprolol was held. Patient did well again overnight, no complaints of chest pain, shortness of breath, headaches, nausea, vomiting, fever, chills, sweats, abdominal pain, changes in bowels or bladder, weakness, or loss of sensation. Patient to be discharge with Brilinta 90mg bid, daily aspirin, low dose metoprolol, and Crestor. Patient to discontinue Eliquis. Patient to follow up with PCP within 7 days regarding this hospital stay and follow up with Cardiology within 7 days. Time spent discussing smoking cessation with patient: 3 to 10 minutes - Time Spent with Patient Total time spent providing and/or coordinating discharge services: Less than 30 minutes Physical Examination Vital Signs, Last 4 Hours Temp Pulse Resp BP Pulse Ox 01/03/17 11:31 60 01/03/17 11:06 97.8 F 61 14 115/80 97 General: Conversant, No Apparent Distress HEENT: Atraumatic, Normocephaly, Mucus Membranes Moist Neck: No JVD, Normal carotid pulses Cardiac: Reg Rate and Rhythm, Normal S1 and S2, No Murmur Lungs: Normal Breath Sounds, No Wheeze, Rales, Rhonchi Neuro: Alert and responsive, No focal deficits noted Abdomen: Soft, Non-Tender Skin: No rashes noted on visualized skin, Other (intervention site, Right radius appears clean dry nonerythematous nontender well healed) Musculoskeletal: No Chest Wall Tenderness Extremities: No Clubbing, No Cyanosis, No Edema, Normal Pulses, Other (normal sensation bilateral hands, radial pulses 2+ bilaterally, good capillary refill to both ulnar and radial bilaterally)
== END 2017-01-03 19:05 | disposition home or self-care (01) | DRG 247 ==
LOC: ICNU 16:29 → EMEROO 16:29 → ICNU 17:45 → 2NNU 01-02 20:25
PROVIDERS: ADMIT Emergency Medicine; ATTEND Emergency Medicine